=== PATIENT | male | born 1985 | race African-American/Black ===

== ENCOUNTER 2022-06-09 21:47 | Emergency (ER) | payer OTHER ==
[~2022-06-09] VITALS: Ht 177.8 cm; Wt 113.4 kg
[2022-06-09 22:06] VITALS: BP_SYST 149
== END 2022-06-10 00:11 | disposition left against medical advice (07) ==
LOC: SED 21:47
DX: M79.671 Pain in right foot (principal); Z53.21 Procedure and treatment not carried out due to patient leaving prior to being seen by health care provider